=== PATIENT | female | born 2000 | race Hispanic/Latino ===

== ENCOUNTER 2022-03-31 06:03 | Emergency (ER) | payer OTHER ==
[2022-03-31] MEDS ORDERED: Ketorolac Tromethamine 30 MG/ML VIAL ONE (07:08)
== END 2022-03-31 08:00 ==
LOC: ERS 06:03
DX: S92.422A Displaced fracture of distal phalanx of left great toe, initial encounter for closed fracture (principal); S93.602A Unspecified sprain of left foot, initial encounter; W20.8XXA Other cause of strike by thrown, projected or falling object, initial encounter; E66.9 Obesity, unspecified
CPT/HCPCS: 96372; J1885